=== PATIENT | female | born 1955 | race Caucasian/White ===

== ENCOUNTER → 2017-05-02 | Outpatient (CLI) | payer BC | LOC: LAB SHORT 08:31 → PLD 08:31 | DX: D48.5 Neoplasm of uncertain behavior of skin (principal) | CPT/HCPCS: 88305 ==

== ENCOUNTER → 2017-10-22 | Outpatient (CLI) | payer BC | END | disposition home or self-care (01) | LOC: LAB EV 15:10 → LAB SHORT 15:10 | DX: N39.0 Urinary tract infection, site not specified (principal) | CPT/HCPCS: 87077; 87086; 87186 ==

== ENCOUNTER → 2018-06-24 | Outpatient (CLI) | payer BC ==
[2018-06-24 15:38] LABS: Alanine Aminotransfer (ALT/SGP 31 U/L (12-78); Albumin, Blood 3.6 g/dL (3.4-5.0); Albumin/Globulin Ratio 1.1 (0.8-1.8); Alk Phos 111 U/L (40-126); Anion Gap 9 mmol/L (6-16); Aspartate Aminotrans (AST/SGOT 20 U/L (12-37); Bilirubin, Total 0.6 mg/dL (0.1-1.0); Blood Urea Nitrogen 13 mg/dL (8-24); Bun/Creatinine Ratio 15.7 (12.0-20.0); CHOL/HDL RATIO 3.8; CO2, Blood 28 mmol/L (21-32); Calcium, Blood 8.1 mg/dL (8.5-10.1); Chloride, Blood 102 mmol/L (98-108); Cholesterol 137 mg/dL (50-200); Creatinine, Blood 0.83 mg/dL (0.40-1.00); Globulin, Blood 3.4 g/dL (2.2-4.0); Glomerular Filtration Rate >60 (60-); Glucose, Blood 157 mg/dL (70-99); HDL Cholesterol 36 mg/dL (>39); LDL/HDL RATIO 2.1; Low Density Lipoprotein Chol 77 mg/dL (<110); Potassium, Blood 4.1 mmol/L (3.5-5.5); Sodium, Blood 139 mmol/L (136-145); Triglycerides 119 mg/dL (30-160); Very Low Density Lipoprot Chol 23 mg/dL (6-32)
== END ==
LOC: LAB EV 14:43 → LAB SHORT 14:43
PROVIDERS: Nurse Practitioner Family
DX: E11.9 Type 2 diabetes mellitus without complications (principal); E78.5 Hyperlipidemia, unspecified
CPT/HCPCS: 36415; 80053; 80061; 83036

== ENCOUNTER → 2018-10-25 | Outpatient (CLI) | payer BC ==
[~2018-10-25] MED LIST: ACET325 PO; ACID REDUCER 1150 MG PO; INSUGL100V SC; LEVFLO500 PO; LIRA0.6P SC; POTA10T PO; ZESTORETIC 20-121 EA PO; ZYRTEC10 M2 PO
== END ==
LOC: LAB EV 10:20 → LAB SHORT 10:20
DX: R35.0 Frequency of micturition (principal)
CPT/HCPCS: 87077; 87086; 87186

== ENCOUNTER 2018-11-05 23:34 | Observation (INO) | payer BC ==
[~2018-11-05] VITALS: Ht 172.7 cm; Wt 152.1 kg
[2018-11-05] MEDS ORDERED: LIRA0.6P SC (23:48)
[2018-11-05] MEDS ORDERED: ZESTORETIC 20-121 EA PO (23:48)
[2018-11-05] MEDS ORDERED: INSUGL100V SC (23:50)
[2018-11-05] MEDS ORDERED: POTA10T PO (23:51)
[2018-11-06] LABS: BASOPHILS ABSOLUTE AUTO 0.02 K/mm3 (0.00-0.23); BASOPHILS PERCENT AUTO 0 % (0-2); EOSINOPHILS ABSOLUTE AUTO 0.12 K/mm3 (0.00-0.68); EOSINOPHILS PERCENT AUTO 2 % (0-6); Hematocrit 41.1 % (33.0-51.0); Hemoglobin 13.6 g/dL (11.5-16.0); IMMATURE GRAN ABSOLUTE AUTO 0.04 K/mm3 (0.00-0.10); IMMATURE GRAN PERCENT AUTO 1 % (0-1); LYMPHOCYTES ABSOLUTE AUTO 3.82 K/mm3 (0.84-5.20); LYMPHOCYTES PERCENT AUTO 49 % (21-46); MONOCYTES ABSOLUTE AUTO 0.68 K/mm3 (0.16-1.47); MONOCYTES PERCENT AUTO 9 % (4-13); Mean Corpuscular HGB 33.1 pg (26.0-34.0); Mean Corpuscular HGB Conc 33.1 g/dL (31.5-36.5); Mean Corpuscular Volume 100 fL (80-100); Mean Platelet Volume 10.9 fL (9.1-12.4); NEUTROPHILS ABSOLUTE AUTO 3.14 K/mm3 (1.96-9.15); NEUTROPHILS PERCENT AUTO 40 % (41-73); Platelet Count 245 K/mm3 (150-400); RDW Coefficient Variation 11.7 % (11.7-14.2); RDW Standard Deviation 43.2 fL (35.1-46.3); Red Blood Cell Count 4.11 M/mm3 (3.80-5.20); White Blood Cell Count 7.82 K/mm3 (4.00-11.30)
[2018-11-06 00:20] LABS: Alanine Aminotransfer (ALT/SGP 28 U/L (12-78); Albumin, Blood 3.1 g/dL (3.4-5.0); Albumin/Globulin Ratio 0.9 (0.8-1.8); Alk Phos 115 U/L (50-136); Anion Gap 14 mmol/L (6-16); Aspartate Aminotrans (AST/SGOT 17 U/L (12-37); Bilirubin, Total 0.2 mg/dL (0.1-1.0); Blood Urea Nitrogen 20 mg/dL (8-24); Bun/Creatinine Ratio 20.8 (12.0-20.0); CO2, Blood 22 mmol/L (21-32); Calcium, Blood 8.4 mg/dL (8.5-10.1); Chloride, Blood 104 mmol/L (98-108); Creatinine, Blood 0.96 mg/dL (0.40-1.00); Globulin, Blood 3.4 g/dL (2.2-4.0); Glomerular Filtration Rate >60 (60-); Glucose, Blood 324 mg/dL (70-99); Potassium, Blood 3.3 mmol/L (3.5-5.5); Sodium, Blood 140 mmol/L (136-145); Total Protein, Blood 6.5 g/dL (6.4-8.2); Troponin I <0.015 ng/mL (0.000-0.040)
[2018-11-06 00:51] LABS: Source, Urine Clean Catch
[2018-11-06 00:53] LABS: Bilirubin, Urine Neg (Neg); Blood, Urine Neg (Neg); Glucose Qualitative, Urine 4+ (Neg); Ketones, Urine 2+ (Neg); Leukocyte Esterase, Urine 1+ (Neg); Nitrite, Urine Neg (Neg); Protein, Urine 3+ (Neg); Urobilinogen, Urine NORM (Normal)
[2018-11-06 00:55] LABS: Appearance, Urine Clear (Clear); Color, Urine Yellow (P-Yellow)
[2018-11-06 00:59] LABS: Bacteria Mod /hpf; Red Blood Cells, Urine 0-2 /hpf (0-2); Squamous Epithelial Cells Few /hpf (Few)
--- NOTE | 2018-11-06 05:40 | NUR ---
SHIFT SUMMARY- PT. ARRIVED FROM ED VIA STRETCHER. A&O X4, SBA FOR SOME WEAKNESS. PT. RECEIVING IV FLUIDS FOR LACTIC OF 2.8 IN THE ER. REPEAT LACTIC 2.4. PT. RESTING COMFORTABLE IN BED, NO APPARENT DISTRESS NOTED. CALL LIGHT WITHIN REACH AND SIDE RAILS UP X2. WILL CONT TO MONITOR.
[2018-11-06] MEDS ORDERED: ACET325 PO (11:38)
[2018-11-06] MEDS ORDERED: LEVFLO500 PO (11:38)
[2018-11-06] MEDS ORDERED: ZYRTEC10 M2 PO (11:39)
[2018-11-06] MEDS ORDERED: ACID REDUCER 1150 MG PO (11:40)
--- NOTE | 2018-11-06 12:22 | NUR ---
SUMMARY PT DISCHARGED TO HOME, PT VERBALIZED UNDERSTANDING OF DISCHARGE INSTRUCTIONS REGARDING FOLLOW UP AND MEDICATIONS, PT ABLE TO BE TAKEN OUT SAFELY VIA WHEELCHAIR
== END 2018-11-06 12:30 | disposition home or self-care (01) ==
LOC: ER 23:34 → MEDS 23:35 → ENPENDDIS 11-06 11:51 → MEDS 11-06 12:30
PROVIDERS: Emergency Medicine; ADMIT Hospitalist
DX: R55 Syncope and collapse (principal); L50.0 Allergic urticaria; T36.1X5A Adverse effect of cephalosporins and other beta-lactam antibiotics, initial encounter; E09.9 Drug or chemical induced diabetes mellitus without complications; T38.0X5A Adverse effect of glucocorticoids and synthetic analogues, initial encounter; N39.0 Urinary tract infection, site not specified; B96.1 Klebsiella pneumoniae [K. pneumoniae] as the cause of diseases classified elsewhere; I10 Essential (primary) hypertension; E66.01 Morbid (severe) obesity due to excess calories; Z79.4 Long term (current) use of insulin; Z88.5 Allergy status to narcotic agent; Z88.2 Allergy status to sulfonamides; Z88.0 Allergy status to penicillin; Z79.899 Other long term (current) drug therapy; Z68.43 Body mass index [BMI] 50.0-59.9, adult
CPT/HCPCS: 36415; 80053; 81001; 82947; 83605; 83690; 84484; 85025; 87040; 87086; 93005; 93010; 96361; 96372; 96374; 96375; 99285-25; G0378; J1200; J1650; J1956; J2405; J2930; J7030; J7512

== ENCOUNTER 2020-01-25 13:54 | Inpatient (IN) | payer BC ==
[~2020-01-25] VITALS: Ht 167.6 cm; Wt 168.0 kg
[~2020-01-25 13:54] MED LIST changes: -INSUGL100V SC; -LIRA0.6P SC; -POTA10T PO; -ZESTORETIC 20-121 EA PO
[2020-01-25 14:24] LABS: BASOPHILS ABSOLUTE AUTO 0.05 K/mm3 (0.00-0.23); BASOPHILS PERCENT AUTO 1 % (0-2); EOSINOPHILS ABSOLUTE AUTO 0.13 K/mm3 (0.00-0.68); EOSINOPHILS PERCENT AUTO 1 % (0-6); Hematocrit 41.5 % (33.0-51.0); Hemoglobin 13.2 g/dL (11.5-16.0); IMMATURE GRAN ABSOLUTE AUTO 0.03 K/mm3 (0.00-0.10); IMMATURE GRAN PERCENT AUTO 0 % (0-1); LYMPHOCYTES ABSOLUTE AUTO 1.72 K/mm3 (0.84-5.20); LYMPHOCYTES PERCENT AUTO 18 % (21-46); MONOCYTES ABSOLUTE AUTO 0.83 K/mm3 (0.16-1.47); MONOCYTES PERCENT AUTO 8 % (4-13); Mean Corpuscular HGB 32.4 pg (26.0-34.0); Mean Corpuscular HGB Conc 31.8 g/dL (31.5-36.5); Mean Corpuscular Volume 102 fL (80-100); Mean Platelet Volume 10.8 fL (9.1-12.4); NEUTROPHILS ABSOLUTE AUTO 7.09 K/mm3 (1.96-9.15); NEUTROPHILS PERCENT AUTO 72 % (41-73); Platelet Count 247 K/mm3 (150-400); RDW Coefficient Variation 12.5 % (11.7-14.2); RDW Standard Deviation 47.2 fL (35.1-46.3); Red Blood Cell Count 4.08 M/mm3 (3.80-5.20); White Blood Cell Count 9.85 K/mm3 (4.00-11.30)
[2020-01-25 14:38] LABS: International Normalized Ratio 1.09; Prothrombin Time Results 11.6 Sec (9.7-11.5)
[2020-01-25] MEDS ORDERED: BASAGLAR K100 UNIT/6 SC (14:38)
[2020-01-25] MEDS ORDERED: DULOXETINE HCL60 M1 PO (14:39)
[2020-01-25] MEDS ORDERED: IBU800 M1 PO (14:39)
[2020-01-25] MEDS ORDERED: VICTOZA 2-0.6 MG/0.1 SC (14:40)
[2020-01-25] MEDS ORDERED: POTA10T PO (14:40)
[2020-01-25] MEDS ORDERED: INSULIN AS100 UNIT/8 SC (14:41)
[2020-01-25] MEDS ORDERED: TRAZ150T57 PO (14:42)
[2020-01-25] MEDS ORDERED: LISINOPRIL-HCT1 EACH PO (14:42)
[2020-01-25 14:50] LABS: Alanine Aminotransfer (ALT/SGP 47 U/L (12-78); Albumin, Blood 3.2 g/dL (3.4-5.0); Alk Phos 82 U/L (50-136); Anion Gap 3 mmol/L (6-16); Aspartate Aminotrans (AST/SGOT 24 U/L (12-37); Bilirubin, Total 0.7 mg/dL (0.1-1.0); Blood Urea Nitrogen 19 mg/dL (8-24); Bun/Creatinine Ratio 23.1 (12.0-20.0); CO2, Blood 30 mmol/L (21-32); Calcium, Blood 8.2 mg/dL (8.5-10.1); Chloride, Blood 108 mmol/L (98-108); Creatinine, Blood 0.82 mg/dL (0.40-1.00); Free Thyroxine 1.17 ng/dL (0.70-1.60); Globulin, Blood 3.2 g/dL (2.2-4.0); Glomerular Filtration Rate >60 (60-); Glucose, Blood 223 mg/dL (70-99); Magnesium, Blood 1.6 mg/dL (1.6-2.4); Potassium, Blood 3.9 mmol/L (3.5-5.5); Sodium, Blood 141 mmol/L (136-145); Total Protein, Blood 6.4 g/dL (6.4-8.2)
--- NOTE | 2020-01-25 17:30 | NUR ---
ADMISSION PT TO BE ADMITTED TO PCU 12. REPORT RECEIVED FROM ERNESTINA IN THE ER.
--- NOTE | 2020-01-25 19:10 | NUR ---
REPORT TO FELIPE HILL TO ASSUME CARE AT THIS TIME
--- NOTE | 2020-01-25 19:53 | NUR ---
SUMMARY PT ARRIVED TO PCU 12 APPROX 1800. PT ALERT, ORIENTED. ABLE TO STAND AND WALK TO BATHROOM AND GET IN BED INDEPENDENTLY. DILTIAZEM INFUSING AT 5 MG/HR. HR LOW 100'S. BP STABLE. DENIES CHEST PAIN, DIZZINESS OR SHORTNESS OF BREATH EXCEPT MILD SHORTNESS OF BREATH WITH WALKING IN ROOM. BLOOD SUGAR STABLE. DINNER PROVIDED TO PATIENT PER ORDERS. PT ORIENTED TO ROOM, DENIES NEEDS OTHERWISE. SEE ADMISSION HISTORY AND ASSESSMENT. MEDS AND ALLERGIES UPDATED PER PT'S MEMORY. PT ABLE TO SITE ALL MEDICATIONS, DOSES AND TIMES.
--- NOTE | 2020-01-25 22:39 | NUR ---
ASSUMED CARE PT A&O X4; VSS; AFIB W/ HR 115 NOTED ON TELE; DENIES CHEST PAIN; CARDIZEM GTT @ 5; O2 SATS >93 ON RA; LUNG SOUNDS CLEAR; PT WATCHING TV W/ NO DISTRESS NOTED; CALL LIGHT IN REACH; BED IN LOWEST POSITION.
[2020-01-25 23:39] LABS: Troponin I 0.04 ng/mL (0.000-0.040)
[2020-01-26 04:23] LABS: BASOPHILS ABSOLUTE AUTO 0.04 K/mm3 (0.00-0.23); BASOPHILS PERCENT AUTO 1 % (0-2); EOSINOPHILS ABSOLUTE AUTO 0.22 K/mm3 (0.00-0.68); EOSINOPHILS PERCENT AUTO 3 % (0-6); Hematocrit 38.3 % (33.0-51.0); Hemoglobin 12.1 g/dL (11.5-16.0); IMMATURE GRAN ABSOLUTE AUTO 0.02 K/mm3 (0.00-0.10); IMMATURE GRAN PERCENT AUTO 0 % (0-1); LYMPHOCYTES ABSOLUTE AUTO 2.48 K/mm3 (0.84-5.20); LYMPHOCYTES PERCENT AUTO 29 % (21-46); MONOCYTES ABSOLUTE AUTO 0.93 K/mm3 (0.16-1.47); MONOCYTES PERCENT AUTO 11 % (4-13); Mean Corpuscular HGB 31.9 pg (26.0-34.0); Mean Corpuscular HGB Conc 31.6 g/dL (31.5-36.5); Mean Corpuscular Volume 101 fL (80-100); Mean Platelet Volume 10.8 fL (9.1-12.4); NEUTROPHILS ABSOLUTE AUTO 4.87 K/mm3 (1.96-9.15); NEUTROPHILS PERCENT AUTO 57 % (41-73); Platelet Count 219 K/mm3 (150-400); RDW Coefficient Variation 12.6 % (11.7-14.2); Red Blood Cell Count 3.79 M/mm3 (3.80-5.20); White Blood Cell Count 8.56 K/mm3 (4.00-11.30)
[2020-01-26 04:42] LABS: Alanine Aminotransfer (ALT/SGP 40 U/L (12-78); Albumin, Blood 3.1 g/dL (3.4-5.0); Albumin/Globulin Ratio 1.1 (0.8-1.8); Alk Phos 73 U/L (50-136); Anion Gap 5 mmol/L (6-16); Aspartate Aminotrans (AST/SGOT 19 U/L (12-37); Bilirubin, Total 0.9 mg/dL (0.1-1.0); Blood Urea Nitrogen 17 mg/dL (8-24); Bun/Creatinine Ratio 21.2 (12.0-20.0); CO2, Blood 29 mmol/L (21-32); Calcium, Blood 8.2 mg/dL (8.5-10.1); Chloride, Blood 108 mmol/L (98-108); Globulin, Blood 2.7 g/dL (2.2-4.0); Glomerular Filtration Rate >60 (60-); Glucose, Blood 173 mg/dL (70-99); Magnesium, Blood 1.9 mg/dL (1.6-2.4); Potassium, Blood 3.5 mmol/L (3.5-5.5); Sodium, Blood 142 mmol/L (136-145); Total Protein, Blood 5.8 g/dL (6.4-8.2)
--- NOTE | 2020-01-26 06:51 | NUR ---
SHIFT SUMMARY PT A&O X4; PLEASANT & COMPLIANT W/ CARE; VSS; AFIB NOTED ON TELE; HR 100-120; HR ELEVATES W/ AMBULATION; CARDIZEM GTT @ 5; O2 SATS >93 ON RA; PT AMBULATES TO BATHROOM W/ NO GAIT DISTURBANCES NOTED; CALL LIGHT IN REACH; BED IN LOWEST POSITION; WILL CONTINUE TO MONITOR UNTIL HAND OFF TO DAY SHIFT RN.
--- NOTE | 2020-01-26 07:05 | NUR ---
UPDATE NOTIFIED BY JOB TRAINING SUPERVISOR OF 6 BEAT RUN OF VTACH; PT WAS ASSYMPTOMAIC AND STATED SHE FELT FINE.
--- NOTE | 2020-01-26 08:28 | NUR ---
CARE ASSUMED REPORT RECEIVED, CARE ASSUMED AT 0700 FROM FELIPE HILL. PT SITTING UP AT SIDE OF BED, EATING BREAKFAST. DENIES PAIN, DISCOMFORT, SHORTNESS OF BREATH. VITALS STABLE. DILTIAZEM CONTINUES TO INFUSE AT 5 MG/HR. SEE SHIFT ASSESSMENT. CARDIOLOGY CONSULT IN PLACE. HOSPITALIST AT BEDSIDE TO ROUND AT THIS TIME.
--- NOTE | 2020-01-26 10:52 | NUR ---
UPDATE SINCE PREVIOUS NOTE, DILTIAZEM INCREASED TO 10 MG/HR. BP REMAINS STABLE. DR. ORR TO BEDSIDE FOR CARDIOLOGY CONSULT. DURING DR. ORR'S ASSESSMENT, PT REPORTS 1/10 CHEST PAIN TO LEFT SIDE. EKG COMPLETE AND REVIEWED BY DR. ORR. ECHO COMPLETED. KEEP PT NPO UNTIL DR. ORR IS ABLE TO REVIEW ECHO AND HR IS STABALIZED. AT THIS TIME PT'S HEART RATE MAINTAINING IN THE 90'S A FIB. HOSPITALIST ALSO ROUNDED ON PATIENT. XARELTO INCREASED PER DR. ORR RECOMMENDATIONS. SEE PROVIDER NOTES AND ORDERS.
--- NOTE | 2020-01-26 12:04 | NUR ---
CARDIOLOGY SPOKE WITH DR. ORR AFTER SHE REVIEWED ECHO. PLAN FOR RENATA WITH CARDIOVERSION AROUND 4 PM THIS AFTERNOON. PT UPDATED AND AGREEABLE.
--- NOTE | 2020-01-26 16:32 | NUR ---
ECHO AND RENATA COMPLETED
--- NOTE | 2020-01-26 19:10 | NUR ---
REPORT TO FELIPE HILL TO ASSUME CARE AT THIS TIME
--- NOTE | 2020-01-26 20:23 | NUR ---
SUMMARY PER DR. ORR, UNABLE TO CARDIOVERT PATIENT IN [employer]. PT BACK TO PCU AND GIVEN AMIODERONE BOLUS AND DRIP STARTED PER ORDERS. ALSO PER DR. ORR, CONTINUE DILTIAZEM TO MAINTAIN HR BELOW 110. OK TO ADVANCE DIET TOLERATED. WILL REASSESS NEED FOR CARDIOVERSION IN [address] ORR. SINCE RETURNING FROM [employer], PT'S VITALS STABLE. PT ALERT, ORIENTED, CALM AND COOPERATIVE. CONTINUES TO CALL APPROPRIATELY FOR NEEDS. PROVIDED WITH FOOD AND TOLERATED WELL.
--- NOTE | 2020-01-27 07:58 | NUR ---
SHIFT SUMMARY PT A&O X4; PLEASANT & COMPLAINT W/ CARE; VSS; DENIES CHEST PAIN/PRESSURE; AFIB NOTED ON TELE; AMIO GTT TITRATED TO 0.5; CARDIZEM GTT @ 10; HR ELEVATES W/ BRP AND PT BECOMES SOB; EKG THIS AM, STRIP PLACED IN CHART; O2 SATS >93 ON RA W/ DIM LUNG SOUNDS; CALL LIGHT IN REACH; BED IN LOWEST POSITION; REPORT GIVEN TO DAY SHIFT RN.
[2020-01-27 08:22] LABS: BASOPHILS ABSOLUTE AUTO 0.04 K/mm3 (0.00-0.23); BASOPHILS PERCENT AUTO 0 % (0-2); EOSINOPHILS ABSOLUTE AUTO 0.07 K/mm3 (0.00-0.68); EOSINOPHILS PERCENT AUTO 1 % (0-6); Hematocrit 41.1 % (33.0-51.0); Hemoglobin 13.1 g/dL (11.5-16.0); IMMATURE GRAN ABSOLUTE AUTO 0.05 K/mm3 (0.00-0.10); IMMATURE GRAN PERCENT AUTO 1 % (0-1); LYMPHOCYTES ABSOLUTE AUTO 1.49 K/mm3 (0.84-5.20); LYMPHOCYTES PERCENT AUTO 16 % (21-46); MONOCYTES PERCENT AUTO 12 % (4-13); Mean Corpuscular HGB 32.7 pg (26.0-34.0); Mean Corpuscular HGB Conc 31.9 g/dL (31.5-36.5); Mean Corpuscular Volume 103 fL (80-100); Mean Platelet Volume 10.8 fL (9.1-12.4); NEUTROPHILS ABSOLUTE AUTO 6.52 K/mm3 (1.96-9.15); NEUTROPHILS PERCENT AUTO 70 % (41-73); Platelet Count 240 K/mm3 (150-400); RDW Coefficient Variation 12.8 % (11.7-14.2); RDW Standard Deviation 47.8 fL (35.1-46.3); Red Blood Cell Count 4.01 M/mm3 (3.80-5.20); White Blood Cell Count 9.27 K/mm3 (4.00-11.30)
[2020-01-27 08:56] LABS: Anion Gap 7 mmol/L (6-16); Blood Urea Nitrogen 15 mg/dL (8-24); Bun/Creatinine Ratio 18.4 (12.0-20.0); CHOL/HDL RATIO 3.2; CO2, Blood 29 mmol/L (21-32); Calcium, Blood 8.6 mg/dL (8.5-10.1); Chloride, Blood 106 mmol/L (98-108); Cholesterol 105 mg/dL (50-200); Creatinine, Blood 0.82 mg/dL (0.40-1.00); Glomerular Filtration Rate >60 (60-); Glucose, Blood 200 mg/dL (70-99); HDL Cholesterol 33 mg/dL (>39); Sodium, Blood 142 mmol/L (136-145)
[2020-01-27 09:00] LABS: LDL/HDL RATIO 1.6; Low Density Lipoprotein Chol 52 mg/dL (0-110); Triglycerides 100 mg/dL (30-160); Very Low Density Lipoprot Chol 20 mg/dL (6-32)
--- NOTE | 2020-01-27 12:20 | NUR ---
ACCEPTED REPORT FROM DANAY HILL RN. PT HAD ECHO THIS MORNING AND WAS VISITED BY DR. TUBBS AND DR PASCAL. DR TUBBS IS PLANNING FOR THE ANGIOGRAM TOMORROW 01/28/20, PT WILL NEED TO BE NPO AFTER 0000 ON 01/28/20. DR PASCAL DC'D LASIX THIS MORNING, TO HELP PRESERVE PT'S KIDNEY FUNCTION FOR THE CONTRAST DURING THE PROCEDURE TOMORROW. ADMISSION ASSESSMENT COMPLETED AFTER BREAKFAST. LUNGS CLEAR HEART SOUNDS PRESENT, NSR 96BPM. 1+ MINIMAL EDEMA BLE PT DENIES PAIN AND DISCOMFORT
--- NOTE | 2020-01-27 12:25 | NUR ---
REPORT RECEIVED FROM DANAY HILL RN. PT STATED SHE VISITED WITH THE THIS AM AND THE PLAN WAS TO ATTEMPT A CARDIOVERSION TOMORROW. IN THE MEANTIME PT IS ON CARDIZEM AND AMIO DRIP, VERIFIED WITH EMAR DURING REPORT. RIGHT AC IV INFILTRATED THIS AM, TWO FAILED ATTEMPTS FOLLOWED BY SUCCESSFUL INSERTION BY JESU MCDERMOTT RN. PT HAS BEEN ABLE TO AMBULATE WITH SBA TO THE BATHROOM AND HAS BEEN COOPERATIVE WITH HER CARE.
--- NOTE | 2020-01-27 17:46 | NUR ---
SHIFT SUMMARY PT ON DILTIAZEM AND AMIO DRIP AT START OF SHIFT. NEW BAG OF DILTIAZEM STARTED THIS AFTERNOON. RIGHT AC IV ACCESS INFILTRATED DURING ASSESSMENT, REMOVED. NEW IV STARTED LEFT ARM BY JESU Claudio RN. BOTH IV'S CURRENTLY INFUSING, AMIO DRIP TO BE DC'D AT 1830, 18 HOURS AFTER THE TITRATION START. PT RECEIVED LASIX THIS MORNING AND HAS HAD MINIMAL OUTPUT, 3+ EDEMA BLE, BUE. LUNG SOUNDS CLEAR. INSULIN COVERAGE THROUGHOUT THE SHIFT WAS NEEDED. PT HAS SUSTAINED AFIB WITH HR BETWEEN 100-110 DURING THE DAY. PT IS NOW RESTING AFTER DINNER
[2020-01-28 04:27] LABS: BASOPHILS ABSOLUTE AUTO 0.05 K/mm3 (0.00-0.23); BASOPHILS PERCENT AUTO 1 % (0-2); EOSINOPHILS ABSOLUTE AUTO 0.14 K/mm3 (0.00-0.68); EOSINOPHILS PERCENT AUTO 1 % (0-6); Hematocrit 39.7 % (33.0-51.0); Hemoglobin 12.8 g/dL (11.5-16.0); IMMATURE GRAN ABSOLUTE AUTO 0.03 K/mm3 (0.00-0.10); IMMATURE GRAN PERCENT AUTO 0 % (0-1); LYMPHOCYTES ABSOLUTE AUTO 2.04 K/mm3 (0.84-5.20); LYMPHOCYTES PERCENT AUTO 20 % (21-46); MONOCYTES ABSOLUTE AUTO 1.31 K/mm3 (0.16-1.47); MONOCYTES PERCENT AUTO 13 % (4-13); Mean Corpuscular HGB 32.4 pg (26.0-34.0); Mean Corpuscular HGB Conc 32.2 g/dL (31.5-36.5); Mean Corpuscular Volume 101 fL (80-100); Mean Platelet Volume 10.5 fL (9.1-12.4); NEUTROPHILS ABSOLUTE AUTO 6.68 K/mm3 (1.96-9.15); NEUTROPHILS PERCENT AUTO 65 % (41-73); Platelet Count 229 K/mm3 (150-400); RDW Coefficient Variation 12.6 % (11.7-14.2); RDW Standard Deviation 46.4 fL (35.1-46.3); Red Blood Cell Count 3.95 M/mm3 (3.80-5.20); White Blood Cell Count 10.25 K/mm3 (4.00-11.30)
[2020-01-28 04:49] LABS: Anion Gap 5 mmol/L (6-16); Blood Urea Nitrogen 14 mg/dL (8-24); Bun/Creatinine Ratio 16.8 (12.0-20.0); CO2, Blood 29 mmol/L (21-32); Calcium, Blood 8.5 mg/dL (8.5-10.1); Chloride, Blood 106 mmol/L (98-108); Creatinine, Blood 0.84 mg/dL (0.40-1.00); Glomerular Filtration Rate >60 (60-); Glucose, Blood 112 mg/dL (70-99); Potassium, Blood 3.5 mmol/L (3.5-5.5); Sodium, Blood 140 mmol/L (136-145)
--- NOTE | 2020-01-28 05:39 | NUR ---
END OF SHIFT SUMMARY NO ACUTE CHANGES THIS SHIFT. VSS. AXO. REMAINS IN AFIB, CARDIZEM GTT INFUSING AT 10 THIS SHIFT, TITRATED DOWN TO 5 DUE TO HR IN 70'S, BP STABLE. PT REMAINS ON RA. VOIDING IN TOILET. PT DENIES CP T/O SHIFT. EKG COMPLETE @5. PT NPO SINCE MIDNIGHT FOR CARDIOVERSION. WILL CONTINUE TO MONITOR UNTIL SHIFT CHANGE.
--- NOTE | 2020-01-28 07:27 | NUR ---
ASSUMED PATIENT CARE. PATIENT RESTING COMFORTABLY IN BED, CONVERSING WITH NURSING STAFF. NO SIGNS OF ACUTE DISTRESS, WCTM.
--- NOTE | 2020-01-28 15:54 | NUR ---
Patient is lying on her side and alert. Patient tells me about her A-Fib and how it has returned even after her cardio abrsion. Patient then tells me about the of her 2yrs ago and the bereavement process she is in. She explains about her spiritual background (Rastafarian) and how she relies on her carina in these kinds of situations. 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 I normalize patient's experience and provide grief support, pastoral field counsel and prayer. Patient responds well and states that I came in at the perfect time and she feels encouraged by the visit. I will continue to remain availble to patient and family.
--- NOTE | 2020-01-28 18:11 | NUR ---
NO ACUTE EVENTS THIS SHIFT. PATIENT WENT TO HEART CENTER FOR CARDIOVERSION, SUCCESSFUL CONVERSION TO NSR, PATIENT THEN CONVERTED BACK TO A FIB AFTER RETURN TO UNIT. HEART RATE REMAINED CONTROLLED ON 5MG/HR CARDIZEM DRIP IN 90S TO 110S. PATIENT ABLE TO AMBULATE INDEPENDENTLY IN ROOM, PATIENT DENIED CHEST PAIN THIS SHIFT. PATIENT STARTED ON PO COREG, PLAN IS TO STOP CARDIZEM DRIP 2 HRS POST ADMIN OF COREG, COREG DOSE TO BE TITRATED BY DR. ORR, RESTART CARDIZEM DRIP NEEDED.
--- NOTE | 2020-01-28 19:30 | NUR ---
MIKAYLA gtt NOT TURNED OFF @1930 DUE TO PATIENT HR REMAINING IN THE 110s-120s. ORDERS SPECIFIED TO CONTINUE gtt. WILL CONTINUE TO MONITOR.
[2020-01-29 05:04] LABS: Anion Gap 5 mmol/L (6-16); Blood Urea Nitrogen 14 mg/dL (8-24); Bun/Creatinine Ratio 16.5 (12.0-20.0); CO2, Blood 30 mmol/L (21-32); Calcium, Blood 8.5 mg/dL (8.5-10.1); Chloride, Blood 106 mmol/L (98-108); Creatinine, Blood 0.85 mg/dL (0.40-1.00); Glomerular Filtration Rate >60 (60-); Glucose, Blood 99 mg/dL (70-99); Phosphorus, Blood 3.6 mg/dL (2.5-4.9); Potassium, Blood 3.6 mmol/L (3.5-5.5); Sodium, Blood 141 mmol/L (136-145)
--- NOTE | 2020-01-29 05:26 | NUR ---
SUMMARY PATIENT IS ALERT, ORIENTED AND COOPERATIVE WITH CARE. TRANSFERS INDEPENDENTLY TO THE BATHROOM. PATIENT SLEPT MOST THE NIGHT. STOPPED PATIENTS CARDIZEM gtt @2150 PER DOCTORS ORDERS. HR REMAINED @90-106 THROUGHOUT THE NIGHT. 02 SATS GREATER THAN 90% ON RA. VSS, NO ACUTE CHANGES. CALL LIGHT IN REACH. WILL CONTINUE TO MONITOR.
--- NOTE | 2020-01-29 10:57 | NUR ---
MORNING REPORT REPORT RECEIVED FROM DANAY CUELLAR RN. PT WAS SITTING AT BEDSIDE DURING REPORT. PT DENIED SOB AND CHEST PAIN OR DISCOMFORT. VS STABLE. PT CBG 99, NO SLIDING SCALE HUMULOG COVERAGE JUST 5 UNITS MEAL COVERAGE. PT HAD EKG COMPLETED THIS MORNING ALONG WITH MORNING MEDICATIONS. PT RESTING AT THIS TIME
--- NOTE | 2020-01-29 18:29 | NUR ---
SHIFT SUMMARY PT HAS MAINTAINED HR AROUND 100 bpm DURING THE DAY, ALONG WITH AFIB RHYTHM. PT HAS BEEN INDEPENDENT IN THE ROOM TO THE BATHROOM, BUT HAS BEEN ADVISED TO LIMIT ACTIVITY WHILE WE ARE WORKING TO GET THE HR UNDER CONTROL. PT NOW HAS LASIX BID AND AN INCREASED DOSE OF COREG OF THIS MORNING. K-DUR WAS INCREASED 1 TIME THIS MORNING TO 40 MEQ PO; MONITOR [facility]+ [facility] IN THE MORNING 01/30/20. 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 PT IS ANXIOUSLY AWAITING TO GO HOME, BUT IS VERY COOPERATIVE AND PLEASANT.
--- NOTE | 2020-01-30 00:49 | NUR ---
ONE TIME IV LASIX REFUSAL PT W/ ONE TIME ORDER FOR IV LASIX PER MD HEADLEY @ 2205. PT PREVIOUSLY TOOK BID IV LASIX @ APPROX 1700. DISCUSSED MEDICATION W/ PT & MD HEADLEY NOTE OF WANTING TO FURTHER DIURESE PT. PT REFUSING 2200 DOSE BUT REPORTS SHE WILL RESUME TAKING LASIX UPON MORNING SCHEDULED DOSE SO THAT SHE IS NOT UP OVER THE NEXT FEW HOURS PEEING. PT LUNG SOUNDS CLEAR. BLE EDEMA IMPROVING.
[2020-01-30 04:13] LABS: BASOPHILS ABSOLUTE AUTO 0.05 K/mm3 (0.00-0.23); BASOPHILS PERCENT AUTO 1 % (0-2); EOSINOPHILS ABSOLUTE AUTO 0.18 K/mm3 (0.00-0.68); EOSINOPHILS PERCENT AUTO 2 % (0-6); Hematocrit 40.4 % (33.0-51.0); Hemoglobin 12.8 g/dL (11.5-16.0); IMMATURE GRAN ABSOLUTE AUTO 0.03 K/mm3 (0.00-0.10); IMMATURE GRAN PERCENT AUTO 0 % (0-1); LYMPHOCYTES ABSOLUTE AUTO 2.56 K/mm3 (0.84-5.20); LYMPHOCYTES PERCENT AUTO 24 % (21-46); MONOCYTES ABSOLUTE AUTO 1.19 K/mm3 (0.16-1.47); MONOCYTES PERCENT AUTO 11 % (4-13); Mean Corpuscular HGB 31.8 pg (26.0-34.0); Mean Corpuscular HGB Conc 31.7 g/dL (31.5-36.5); Mean Corpuscular Volume 101 fL (80-100); Mean Platelet Volume 10.7 fL (9.1-12.4); NEUTROPHILS ABSOLUTE AUTO 6.56 K/mm3 (1.96-9.15); NEUTROPHILS PERCENT AUTO 62 % (41-73); Platelet Count 245 K/mm3 (150-400); RDW Coefficient Variation 12.6 % (11.7-14.2); RDW Standard Deviation 47.1 fL (35.1-46.3); Red Blood Cell Count 4.02 M/mm3 (3.80-5.20); White Blood Cell Count 10.57 K/mm3 (4.00-11.30)
[2020-01-30 04:37] LABS: Bun/Creatinine Ratio 18.4 (12.0-20.0); Calcium, Blood 8.2 mg/dL (8.5-10.1); Creatinine, Blood 1.03 mg/dL (0.40-1.00); Potassium, Blood 3.5 mmol/L (3.5-5.5)
--- NOTE | 2020-01-30 06:04 | NUR ---
SHIFT SUMMARY PT CONTINUES TO BE A&O X4. VSS. SPO2 > 92% ON RA. MONITOR SHOWING AFIB, HR 80's-110 w/ BRIEF INCREASE TO 110's W/ AMBULATION TO RESTROOM. PT GROIN REGION NOTED TO BE BRIGHT RED & MOIST IN SKIN FOLDS. CALL TO HANNAH THIS SHIFT W/ MD NEW ORDER FOR NYASTATIN POWDER, SEE ORDER. POWDER APPLIED PER ORDER W/ PT APPRECIATION. PT DID REFUSE 2200 IV LASIX DOSE BUT REPORTS AGREEANCE TO RESUME BID SCHEDULED DOSES DURING DAY SHIFT. OTHERWISE NO OTHER EVENTS OVER NIGHT. WILL CONTINUE TO MONITOR & PROVIDE CARE UNTIL REPORT OFF TO DAY SHIFT RN.
--- NOTE | 2020-01-30 08:33 | NUR ---
RECEIVED REPORT RECEIVED REPORT FROM DANAY CHARLES RN THIS MORNING. PT WAS RESTING IN BED DURING REPORT. PT IS SCHEDULED FOR DISCHARGE TODAY. LUNGS CLEAR, EDEMA +2 BLE AND BUE IMPROVING. AFIB SUSTAINING HR IN 90S. PT INDEPENDENT IN THE ROOM. SOB UPON EXERTION HAS IMPROVED REPORTED BY THE PT. COREG WAS INCREASED THIS AM, AND A 1 TIME DOSE OF 40 MEQ OF K-DUR WAS ADMINISTERED IN ADDITION TO THE DAILY 20 MEQ.
[2020-01-30] MEDS ORDERED: Pacerone400 MG PO (14:51)
[2020-01-30] MEDS ORDERED: ATOR10 PO (14:52)
[2020-01-30] MEDS ORDERED: FURO40 PO (14:53)
[2020-01-30] MEDS ORDERED: CARV25 PO (14:53)
[2020-01-30] MEDS ORDERED: MAGNESIUM OXID500 MG PO (14:54)
[2020-01-30] MEDS ORDERED: XARELTO20 MG PO (14:55)
--- NOTE | 2020-01-30 15:49 | NUR ---
DISCHARGE NOTE: PT LEFT THE FLOOR VIA WHEELCHAIR WITH NURSE GENERAL DUTY AND FRIEND. PT RESTED THROUGHOUT THE DAY. VS STABLE, HR SUSTAINED 88-100 DURING THE DAY. PT HAS RED AREA AROUND THE GROIN THAT WAS TREATED WITH NYSTATIN. PT WAS ABLE TO MOVE INDEPENDENTLY IN THE ROOM. PT HAD NO FURTHER QUESTIONS AT DISCHARGE
== END 2020-01-30 15:42 | disposition home or self-care (01) | DRG 308 ==
LOC: ER 13:54 → PCU 13:55
PROVIDERS: Emergency Medicine; Internal Medicine; Internal Medicine Cardiovascular Disease; ADMIT Family Medicine
PROC: 5A2204Z Restoration of Cardiac Rhythm, Single (ICD-10-PCS; principal; 2020-01-26)
PROC: B24BZZ4 Ultrasonography of Heart with Aorta, Transesophageal (ICD-10-PCS; 2020-01-26)
PROC: 5A2204Z Restoration of Cardiac Rhythm, Single (ICD-10-PCS; 2020-01-28)
DX: I48.91 Unspecified atrial fibrillation (principal); I50.21 Acute systolic (congestive) heart failure; Z68.43 Body mass index [BMI] 50.0-59.9, adult; Z66 Do not resuscitate; Z20.828 Contact with and (suspected) exposure to other viral communicable diseases; Z79.4 Long term (current) use of insulin; E11.9 Type 2 diabetes mellitus without complications; E66.01 Morbid (severe) obesity due to excess calories; E83.42 Hypomagnesemia; E87.6 Hypokalemia; E78.5 Hyperlipidemia, unspecified; I47.1 Supraventricular tachycardia; I27.20 Pulmonary hypertension, unspecified; I08.1 Rheumatic disorders of both mitral and tricuspid valves; I11.0 Hypertensive heart disease with heart failure; G47.30 Sleep apnea, unspecified
CPT/HCPCS: 36221; 36415; 71045; 80048; 80053; 80061; 82607; 82947; 83735; 83880; 84100; 84439; 84443; 84484; 85025; 85610; 92960; 93005; 93010; 93312; 93325; 96365; 96366; 96376; 99285-25; A9270; A9270-GY; C1751; C8929; J0282; J1815; J1940; J2704; J7030; J7060; Q9957; U0004

== ENCOUNTER 2020-05-13 11:50 | Day surgery (SDC) | payer MEDICARE, BC ==
[~2020-05-13] VITALS: Ht 167.6 cm; Wt 153.0 kg
[~2020-05-13 11:50] MED LIST changes: +ATOR10 PO; +BASAGLAR K100 UNIT/6 SC; +CARV25 PO; +DULOXETINE HCL60 M1 PO; +FURO40 PO; +IBU800 M1 PO; +INSULIN AS100 UNIT/8 SC; +LISINOPRIL-HCT1 EACH PO; +MAGNESIUM OXID500 MG PO; +POTA10T PO; +Pacerone400 MG PO; +TRAZ150T57 PO; +VICTOZA 2-0.6 MG/0.1 SC; +XARELTO20 MG PO
--- NOTE | 2020-05-13 14:04 | NUR ---
PT VERBALIZED UNDERSTANDING OF WRITTEN AND VERBAL D/C INST. IV REMOVED. PT TAKEN OUT OF THE HRT CENTER VIA W/C.
== END 2020-05-13 22:43 | disposition home or self-care (01) ==
LOC: ORD 11:50 → MHTC 11:50 → ORD 22:43
DX: I48.91 Unspecified atrial fibrillation (principal); E11.9 Type 2 diabetes mellitus without complications; I11.0 Hypertensive heart disease with heart failure; I50.22 Chronic systolic (congestive) heart failure; E78.5 Hyperlipidemia, unspecified; G47.33 Obstructive sleep apnea (adult) (pediatric); E66.01 Morbid (severe) obesity due to excess calories; F41.9 Anxiety disorder, unspecified; Z79.4 Long term (current) use of insulin; Z79.01 Long term (current) use of anticoagulants; Z68.43 Body mass index [BMI] 50.0-59.9, adult; Z66 Do not resuscitate
CPT/HCPCS: 92960; 93005; 93010; J2250; J2704; J7030

== ENCOUNTER 2020-06-10 05:58 | Day surgery (SDC) | payer MEDICARE, BC ==
[~2020-06-10] VITALS: Ht 172.7 cm; Wt 152.0 kg
--- NOTE | 2020-06-10 08:00 | NUR ---
PT TOLERATED RENATA/ CARDIOVERSION WITH ANESTHESIA WELL. NADN. KERR. PT AWAITING CORONARY ANGIOGRAM WITH DR MACDONALD. CONTINOUS MONITORING IN PLACE. CALL LIGHT WITHIN REACH.
--- NOTE | 2020-06-10 08:05 | NUR ---
DR MACDONALD IN ROOM DISCUSSING PLAN OF CARE.
--- NOTE | 2020-06-10 08:15 | NUR ---
PT TO TO HORSE RACING MANAGER FOR CORONARY ANGIOGRAM.
--- NOTE | 2020-06-10 11:38 | NUR ---
DISCHARGE PT REMAINED A&OX3 AND DENIED ANY PAIN DURING RECOVERY. RIGHT RADIAL SITE-TR BAND REMOVED-WHITE BOARD AND CLOTH DOT BANDAGE IN PLACE-CDI NO HEMOTOMA NOTED. PT ABLE TO DRESS SELF WITH LITTLE ASSTANCE. POST EKG PERFOMED. IV DC'D WITH CANULA IN TACT. DISCHARGE PAPERWORK GONE OVER WITH PT. PT VERBALLY STATED THE UNDERSTANDING OF THE DISCHARGE EDUCATION AND DENIED ANY QUESTIONS AT THIS TIME. PT WHEELD OUT BY THIS NURSE.
== END 2020-06-10 12:07 | disposition home or self-care (01) ==
LOC: MHTC 05:58
DX: I48.91 Unspecified atrial fibrillation (principal); I47.2 Ventricular tachycardia; I11.0 Hypertensive heart disease with heart failure; I50.22 Chronic systolic (congestive) heart failure; E11.9 Type 2 diabetes mellitus without complications; G47.33 Obstructive sleep apnea (adult) (pediatric); E78.5 Hyperlipidemia, unspecified; E66.01 Morbid (severe) obesity due to excess calories; Z68.43 Body mass index [BMI] 50.0-59.9, adult; Z66 Do not resuscitate; Z88.6 Allergy status to analgesic agent; Z88.1 Allergy status to other antibiotic agents; Z88.5 Allergy status to narcotic agent; Z88.0 Allergy status to penicillin; Z88.2 Allergy status to sulfonamides; Z79.4 Long term (current) use of insulin
CPT/HCPCS: 76937; 82947; 92960; 93005; 93010; 93312; 93325; 93458; 99152; A9270; C1769; C1894; J1644; J2250; J2370; J2704; J3010; J7030; J7050; Q9967

== ENCOUNTER → 2020-08-04 | Outpatient (CLI) | payer MEDICARE, BC ==
[~2020-08-04] MED LIST changes: +ENTRESTO 24 MG1 EACH PO
== END ==
LOC: LAB SHORT 07:54 → LAB 07:54
DX: B35.1 Tinea unguium (principal); L60.2 Onychogryphosis
CPT/HCPCS: 88305; 88312

== ENCOUNTER 2020-08-05 06:56 | Day surgery (SDC) | payer MEDICARE, BC ==
[~2020-08-05 06:56] MED LIST changes: -ENTRESTO 24 MG1 EACH PO
[2020-08-05] MEDS ORDERED: ENTRESTO 24 MG1 EACH PO (08:18)
[2020-08-05 08:21] LABS: SARS-Cov-2 (COVID-19) PCR, MMC NEGATIVE (NEGATIVE)
== END 2020-08-05 23:39 | disposition home or self-care (01) ==
LOC: MHTC 06:56
PROVIDERS: Internal Medicine Cardiovascular Disease
DX: I48.91 Unspecified atrial fibrillation (principal); Z20.822 Contact with and (suspected) exposure to COVID-19
CPT/HCPCS: 92960; 93005; 93010; J2704; J7030; U0004